=== PATIENT | male | born 1990 | race Caucasian/White ===

== ENCOUNTER 2016-11-22 13:12 | Emergency (ER) | payer OTHER, MEDICAID ==
[~2016-11-22] VITALS: Ht 165.1 cm; Wt 97.5 kg
[2016-11-22 13:13] VITALS: BP_SYST 149
--- NOTE | 2016-11-22 13:13 | NUR ---
Patient is here for medical clearance to go to [facility] so that he may receive his routine medications, Abilify, Cogentin, Neurontin. Patient to ER bed 6 to gown for evaluation. Side rails up. Report given to Parker MORALES.
--- NOTE | 2016-11-22 13:20 | NUR ---
ER at bedside examining patient.
--- NOTE | 2016-11-22 13:30 | NUR ---
Pt d/c to custody of police.
[2016-11-22 13:46] VITALS: BP_SYST 148
--- NOTE | 2016-11-22 13:46 | NUR ---
Patient given written and verbal discharge instructions and verbalizes understanding. ER MD discussed with patient the results and treatment provided. Patient in stable condition. ID arm band removed. Patient educated on pain management and to follow up with PMD. Pain Scale 0 Opportunity for questions provided and answered.
== END 2016-11-22 13:46 ==
LOC: SED 13:12
DX: Z02.89 Encounter for other administrative examinations (principal)
CPT/HCPCS: 99283